=== PATIENT | male | born 1950 | race Caucasian/White ===

== ENCOUNTER 2017-10-21 12:05 | Inpatient (IN) | payer MEDICARE, BC ==
[2017-10-21 12:34] LABS: CHLORIDE,CL 96 mEq/L (98-106); SODIUM,NA 133 mEq/L (136-145)
[2017-10-21] MEDS ORDERED: Temazepam 15 MG Cap PO PRN (13:03)
[2017-10-21] MEDS ORDERED: Sodium Chloride 0.9% 10 ML Syringe FLUSH PRN (13:03)
[2017-10-21] MEDS ORDERED: fentaNYL 100 MCG/2 ML SDV IVPUSH PRN (13:03)
[2017-10-21] MEDS ORDERED: Magnesium Hydroxide 400 MG/5 ML Susp 30 ML Cup PO PRN (13:03)
[2017-10-21] MEDS ORDERED: Ondansetron 4 MG Tab.DIS PO PRN (13:03)
[2017-10-21] MEDS: Acetaminophen/HYDROcodone 325-5 MG Tab PO PRN ×2 (13:29→21:03)
[2017-10-21] MEDS: Clindamycin Phosphate in D5W 300 MG in Premix Bag 1 BAG IV SCH ×6 (13:30→22:31)
[2017-10-21] MEDS: Enoxaparin 40 MG/0.4 ML Syringe SUBCUT SCH (13:42)
[2017-10-21] MEDS: Ibuprofen 200 MG Tab PO PRN (15:14)
[2017-10-21] MEDS: Simvastatin 20 MG Tab PO SCH (20:37)
[2017-10-22] MEDS: Ibuprofen 200 MG Tab PO PRN ×4 (01:10→21:54)
[2017-10-22] MEDS: Clindamycin Phosphate in D5W 300 MG in Premix Bag 1 BAG IV SCH ×8 (04:08→21:20)
[2017-10-22] MEDS: Acetaminophen/HYDROcodone 325-5 MG Tab PO PRN ×3 (04:12→20:12)
[2017-10-22] MEDS: Pantoprazole 40 MG Tab.CR PO SCH (06:56)
[2017-10-22] MEDS: Lisinopril 5 MG Tab PO SCH (07:40)
[2017-10-22] MEDS: Aspirin 81 MG Tab.Chew PO SCH (07:40)
[2017-10-22] MEDS: Chlorthalidone 25 MG Tab PO SCH (07:41)
[2017-10-22] MEDS: Multivitamin Tab PO SCH (07:41)
--- NOTE | 2017-10-22 12:58 | PCM.PN ---
- General Info Date of Service: 10/22/17 Admission Dx/Problem (Free Text): Prepatellar Septic Bursitis Functional Status: Reports: Pain Controlled, Tolerating Diet. Denies: Ambulating - Review of Systems General: Denies: Fever, Weakness HEENT: Reports: No Symptoms Pulmonary: Denies: Shortness of Breath, Cough, Sputum Cardiovascular: Denies: Chest Pain, Edema, Lightheadedness Gastrointestinal: Denies: Abdominal Pain, Nausea, Vomiting Genitourinary: Reports: No Symptoms Musculoskeletal: Reports: Joint Pain, Joint Swelling Skin: Reports: Other (left knee open area) Neurological: Reports: No Symptoms - Patient Data Vitals - Most Recent: Last Vital Signs Temp 97.3 F 10/22/17 11:50 Pulse 73 10/22/17 11:50 Resp 20 10/22/17 11:50 BP 127/71 10/22/17 11:50 Pulse Ox 99 10/22/17 11:50 Weight - Most Recent: 190 lb I&O - Last 24 Hours: Intake & Output 10/21/17 10/22/17 10/22/17 22:59 06:59 14:59 Intake Total 50 Balance 50 Lab Results Last 24 Hours: Laboratory Results - last 24 hr 10/21/17 10/22/17 10/22/17 Range/Units 16:35 06:55 06:55 WBC 6.7 (5.0-10.0) 10^3/uL RBC 4.11 L (4.50-6.00) 10^6/uL Hgb 11.7 L (14.0-18.0) g/dL Hct 34.9 L (40.0-54.0) % MCV 84.9 (82.0-94.0) fL MCH 28.5 (27.0-32.0) pg MCHC 33.5 (33.0-38.0) g/dL RDW Coeff of Norberto 13.9 (11.0-15.0) % Plt Count 182 (150-400) 10^3/uL Neut % (Auto) 79.8 (35-85) % Lymph % (Auto) 10.9 (10-55) % Hodgeman % (Auto) 7.9 (0-16) % Eos % (Auto) 1.0 (0-5) % Baso % (Auto) 0.4 (0-3) % Neut # (Auto) 5.33 (1.80-7.00) 10^3/uL Lymph # (Auto) 0.73 L (1.00-4.80) 10^3/uL Hodgeman # (Auto) 0.53 (0.00-0.80) 10^3/uL Eos # (Auto) 0.07 (0.00-0.45) 10^3/uL Baso # (Auto) 0.03 10^3/uL Sodium 134 L (136-145) mEq/L Potassium 3.3 L (3.5-5.0) mEq/L Chloride 99 (98-106) mEq/L Carbon Dioxide 29 (21-32) mmol/L BUN 19 H (7-18) mg/dL Creatinine 1.4 H (0.7-1.3) mg/dL Est Cr Clr Drug Dosing 47.87 mL/min Estimated GFR (MDRD) 51 L (>=60) mL/min Glucose 133 H (75-99) mg/dL Lactic Acid 1.3 (0.4-2.0) mmol/L Calcium 8.9 (8.4-10.1) mg/dL C-Reactive Protein 18.5 H (0.2-0.8) mg/dL Carrillo Results Last 24 Hours: Microbiology 10/21/17 12:13 Wound Culture - Preliminary Knee, Left Gram Positive Cocci Med Orders - Current: Current Medications Hydrocodone Bitart/Acetaminophen (Delta 325-5 Mg) 1 - 2 tab PO Q6H PRN PRN Reason: Pain (moderate 4-6) Last Admin: 10/22/17 11:10 Dose: 2 tab Aspirin (Aspirin) 81 mg PO DAILY PENDING SALE TO [facility] Last Admin: 10/22/17 07:40 Dose: 81 mg Chlorthalidone (Chlorthalidone) 25 mg PO DAILY PENDING SALE TO [facility] Last Admin: 10/22/17 07:41 Dose: 25 mg Enoxaparin Sodium (Lovenox) 40 mg SUBCUT Q24H PENDING SALE TO [facility] Last Admin: 10/21/17 13:42 Dose: 40 mg Fentanyl (Sublimaze) 25 mcg IVPUSH Q6H PRN PRN Reason: Pain Clindamycin Phosphate 300 mg/ (Premix) 50 mls @ 100 mls/hr IV Q6H PENDING SALE TO [facility] Last Admin: 10/22/17 10:34 Dose: 100 mls/hr Ibuprofen (Motrin) 600 mg PO Q6H PRN PRN Reason: Temperature Last Admin: 10/22/17 07:43 Dose: 600 mg Lisinopril (Prinivil) 5 mg PO DAILY PENDING SALE TO [facility] Last Admin: 10/22/17 07:40 Dose: 5 mg Magnesium Hydroxide (Milk Of Magnesia) 30 ml PO Q12H PRN PRN Reason: Constipation Multivitamins/Minerals/Vitamin C (Tab-A-Savanna) 1 tab PO DAILY PENDING SALE TO [facility] Last Admin: 10/22/17 07:41 Dose: 1 tab Ondansetron HCl (Zofran Odt) 4 mg PO Q4H PRN PRN Reason: nausea, able to take PO Pantoprazole Sodium (Protonix) 40 mg PO DAILY@0700 PENDING SALE TO [facility] Last Admin: 10/22/17 06:56 Dose: 40 mg Simvastatin (Zocor) 20 mg PO BEDTIME PENDING SALE TO [facility] Last Admin: 10/21/17 20:37 Dose: 20 mg Sodium Chloride (Saline Flush) 10 ml FLUSH ASDIRECTED PRN PRN Reason: Keep Vein Open Temazepam (Restoril) 15 mg PO BEDTIME PRN PRN Reason: Sleep Discontinued Medications Clindamycin Phosphate 300 mg/ (Premix) 50 mls @ 100 mls/hr IV Q6H PENDING SALE TO [facility] Last Admin: 10/21/17 20:36 Dose: 100 mls/hr - Exam General: Alert, Oriented HEENT: Mucous Membr. Moist/[place] Neck: Supple Lungs: Clear to Auscultation, Normal Respiratory Effort Cardiovascular: Regular Rate, Regular Rhythm GI/Abdominal Exam: Normal Bowel Sounds, Soft, Non-Tender Extremities: Limited Range of Motion, Increased Warmth, Redness, Other (patient continues to have bursal swelling to left knee. Still oozing serous drainage. Tender. Leg both proximally and distally feels warm, no redness noted. Bursa size is smaller today. Is able to ambulate a bit better today, still has stiffness and limited range of motion.) Wound/Incisions: Erythema Improving Neurological: No New Focal Deficit - Problem List & Annotations (1) Prepatellar bursitis of left knee SNOMED Code(s): 36084988 Code(s): M70.42 - PREPATELLAR BURSITIS, LEFT KNEE Status: Acute Priority : High Current Visit: Yes - Problem List Review Problem List Initiated/Reviewed/Updated: Yes - My Orders Last 24 Hours: My Active Orders 10/21/17 12:13 CULTURE WOUND [RM] Routine 10/21/17 13:03 Patient Status [ADT] Routine Oxygen Therapy [RC] .PRN Up ad Peg [RC] ASDIRECTED Vital Signs [RC] 0800,1200,1600,2000,0000,0400 Acetaminophen/HYDROcodone [Delta 325-5 MG] 1 - 2 tab PO Q6H PRN Magnesium Hydroxide [Milk of Magnesia] 30 ml PO Q12H PRN Ondansetron [Zofran ODT] 4 mg PO Q4H PRN Sodium Chloride 0.9% [Saline Flush] 10 ml FLUSH ASDIRECTED PRN Temazepam [Restoril] 15 mg PO BEDTIME PRN fentaNYL [Sublimaze] 25 mcg IVPUSH Q6H PRN Saline Lock Insert [OM.PC] Routine Resuscitation Status Routine 10/21/17 13:30 Enoxaparin [Lovenox] 40 mg SUBCUT Q24H 10/21/17 14:25 Ibuprofen [Motrin] 600 mg PO Q6H PRN 10/21/17 20:00 Simvastatin [Zocor] 20 mg PO BEDTIME 10/21/17 22:00 Clindamycin Phosphate in D5W [Cleocin in D5W] 300 mg Premix Bag 1 bag IV Q6H 10/21/17 Lunch Regular Diet [DIET] 10/22/17 07:00 Pantoprazole [ProTONIX] 40 mg PO DAILY@0700 10/22/17 08:00 Aspirin 81 mg PO DAILY Chlorthalidone 25 mg PO DAILY Lisinopril [Prinivil] 5 mg PO DAILY Multivitamins [Tab-A-Savanna] 1 tab PO DAILY 10/23/17 05:11 BASIC METABOLIC PANEL,BMP [CHEM] AM C-REACTIVE PROTEIN [CHEM] AM CBC WITH AUTO DIFF [HEME] AM - Assessment Assessment:: Prepatellar septic bursitis - Plan Plan:: Patient feeling better today, pain much more controlled. Is able to bear weight some better than yesterday. Open area to left bursa is oozing serous fluid. Initial wound culture does show gram positive cocci. Is afebrile today. Leg less achy or warm than yesterday. WBC improved to 6.7 today, CRP up to 18. Will continue with IV Cleocin, await full culture report. Blood cultures pending. Ibuprofen and Delta for pain. Discharge inappropriate at this time.
[2017-10-22] MEDS: Enoxaparin 40 MG/0.4 ML Syringe SUBCUT SCH (14:03)
[2017-10-22] MEDS: Simvastatin 20 MG Tab PO SCH (20:12)
[2017-10-23] MEDS: Clindamycin Phosphate in D5W 300 MG in Premix Bag 1 BAG IV SCH ×2 (04:11)
[2017-10-23] MEDS: Ibuprofen 200 MG Tab PO PRN ×2 (04:12→13:22)
[2017-10-23] MEDS: Pantoprazole 40 MG Tab.CR PO SCH (06:34)
[2017-10-23] MEDS: Chlorthalidone 25 MG Tab PO SCH (07:21)
[2017-10-23] MEDS: Lisinopril 5 MG Tab PO SCH (07:21)
[2017-10-23] MEDS: Aspirin 81 MG Tab.Chew PO SCH (07:21)
[2017-10-23] MEDS: Multivitamin Tab PO SCH (07:21)
[2017-10-23] MEDS ORDERED: Sulfamethoxazole/Trimethoprim 800-160 MG Tab PO SCH (08:00)
[2017-10-23] MEDS ORDERED: Vancomycin 1.5 GM in Sodium Chloride 0.9% 500 ML IV SCH (08:45)
--- NOTE | 2017-10-23 09:23 | PN ---
DATE: 10/23/2017 S: Aurelio Burgos was seen with septic bursitis, left knee. O: On examination, the knee is draining lot of pustular stuff. I was able to squeeze out of that area. ASSESSMENT: HE HAS A GRAM-POSITIVE COCCI, MOST LIKELY MRSA BECAUSE THE C- REACTIVE PROTEIN HAS GONE UP. P: Proceed with vancomycin, oral Septra. Cultures pending. CALLIE/ELZA /[id number]
[2017-10-23] MEDS ORDERED: Clindamycin Phosphate in D5W 300 MG in Premix Bag 1 BAG IV SCH ×2 (10:00)
[2017-10-23] MEDS: cefTRIAXone 1 GM Vial IVPUSH SCH (10:04)
[2017-10-23] MEDS: Clindamycin Phosphate in D5W 50 ML IV SCH ×3 (10:05→21:46)
[2017-10-23] MEDS: Acetaminophen/HYDROcodone 325-5 MG Tab PO PRN ×3 (10:08→21:46)
[2017-10-23] MEDS: Enoxaparin 40 MG/0.4 ML Syringe SUBCUT SCH (13:22)
[2017-10-23] MEDS ORDERED: Amoxicillin/Clavulanate K 875-125 MG Tab PO SCH (17:30)
[2017-10-23] MEDS: Simvastatin 20 MG Tab PO SCH (19:45)
[2017-10-24] MEDS: Clindamycin Phosphate in D5W 50 ML IV SCH ×2 (04:10→10:00)
[2017-10-24] MEDS: Ibuprofen 200 MG Tab PO PRN (04:11)
[2017-10-24] MEDS: Pantoprazole 40 MG Tab.CR PO SCH (06:22)
[2017-10-24] MEDS: Aspirin 81 MG Tab.Chew PO SCH (07:33)
[2017-10-24] MEDS: Multivitamin Tab PO SCH (07:33)
[2017-10-24] MEDS: Chlorthalidone 25 MG Tab PO SCH (07:34)
[2017-10-24] MEDS: Acetaminophen/HYDROcodone 325-5 MG Tab PO PRN (07:41)
[2017-10-24] MEDS: Lisinopril 5 MG Tab PO SCH (07:45)
[2017-10-24] MEDS: cefTRIAXone 1 GM Vial IVPUSH SCH (08:19)
--- NOTE | 2017-10-24 08:58 | PCM.PRNOTE ---
- Free Text/Narrative Note: Date of Service 10/23/2017 Procedure: I & D of left pretibial bursitis Area was cleaned with betadine. 1% lidocaine was used to numb the incision site. Using a 15# scalpel, a small incision was made. A moderate amount of pus/ blood was drained from the site. Deep wound culture was collected. Incision was then packed with approximately 8" of iodoform. Scant amount of bleeding. Area was then covered with 4x4 and coban. Patient tolerated the procedure well. No complications. Will repack bursa tomorrow morning. Ree Post DNP, [employer]
--- NOTE | 2017-10-24 11:05 | DISCH ---
HISTORY: This is a 67-year-old white male coming in with septic bursitis, left knee, has been now started on IV antibiotics. Yesterday, I went ahead and I and D'd it, packed with iodoform gauze. On examination this morning, swelling is down. Says he feels better. Culture grew out Group A Strep since that everything he has been on. CBC, white count was elevated, it came down to normal. C-reactive protein was 4.3, went up to 21, it is 12.8 this morning. DISPOSITION: The patient is now discharged home. We will pack his knee tomorrow in the clinic with iodoform. DISCHARGE MEDICATIONS: Home medications plus Augmentin 875 q.12, #20. DISCHARGE DIAGNOSIS: 1. SEPTIC BURSITIS. 2. HYPERLIPIDEMIA. 3. HYPERTENSION. CALLIE/ELZA /[id number]
== END 2017-10-24 12:55 | disposition home or self-care (01) | DRG 558 ==
LOC: CC.FCMC 12:05 → CC.MS 12:51 → UNDOADMIN 12:51 → CC.MS 13:03
PROVIDERS: ADMIT Physician Assistant Medical; ATTEND General Practice
DX: M70.42 Prepatellar bursitis, left knee (principal); E78.5 Hyperlipidemia, unspecified; I10 Essential (primary) hypertension; Z79.82 Long term (current) use of aspirin; Z79.899 Other long term (current) drug therapy
CPT/HCPCS: 36415; 80048; 83605; 85025; 86140; 87040; 87070; 87077; A9270-GY; J0696; J1650